=== PATIENT | male | born 1990 | race Caucasian/White ===

== ENCOUNTER 2017-02-20 19:32 | Emergency (ER) | payer OTHER ==
[~2017-02-20] VITALS: Ht 182.9 cm; Wt 84.1 kg
[2017-02-20 19:39] VITALS: BP 116/69
[2017-02-20] MEDS ORDERED: OXYC1TAB23 PO (19:46)
[2017-02-20] MEDS ORDERED: AMOXICILLIN 500 MG CAP PO ONE (22:30)
[2017-02-20] MEDS ORDERED: MAGIC MOUTHWASH SUSPENSION BTL SSP ONE ×2 (22:30→22:45)
[2017-02-20] MEDS ORDERED: KETOROLAC 60 MG/2 ML VIAL (J1885) IM ONE (22:30)
[2017-02-20] MEDS ORDERED: AMOX875T PO (22:33)
[2017-02-20] MEDS ORDERED: NAPR500T PO (22:33)
[2017-02-20] MEDS ORDERED: MAGICMW SSP (22:33)
== END 2017-02-20 23:04 | disposition home or self-care (01) ==
LOC: M ED 19:32
DX: K08.89 Other specified disorders of teeth and supporting structures (principal)
CPT/HCPCS: 96372; 99282; J1885

== ENCOUNTER 2017-08-04 15:27 | Inpatient (IN) | payer OTHER ==
[2017-08-04 16:13] LABS: HEMATOCRIT 44.1 % (42.0-52.0); HEMOGLOBIN 14.9 g/dl (14.0-18.0); MEAN CORPUSCULAR HEMOGLOBIN 32.3 pg (27.0-33.0); MEAN CORPUSCULAR HGB CONC 33.8 g/dl (32.0-36.5); MEAN CORPUSCULAR VOLUME 95.5 fl (80.0-96.0); PLATELET COUNT, AUTOMATED 317 10^3/uL (150-450); RED BLOOD COUNT 4.62 10^6/uL (4.30-6.10); RED CELL DISTRIBUTION WIDTH 12.2 % (11.5-14.5); WHITE BLOOD COUNT 8.6 10^3/uL (4.0-10.0)
[2017-08-04 16:30] LABS: AMPHETAMINES LEVEL URINE NEGATIVE (NEGATIVE); BARBITURATES URINE NEGATIVE (NEGATIVE); BENZODIAZEPINES URINE NEGATIVE (NEGATIVE); CANNABINOIDS URINE NEGATIVE (NEGATIVE); COCAINE METABOLITE URINE NEGATIVE (NEGATIVE); METHADONE URINE NEGATIVE (NEGATIVE); OPIATES URINE NEGATIVE (NEGATIVE); PHENCYCLIDINE URINE NEGATIVE (NEGATIVE)
[2017-08-04 16:48] LABS: ACETAMINOPHEN LEVEL < 2.0 UG/ML (10.0-30.0); ALBUMIN 4.4 GM/DL (3.2-5.2); ALBUMIN/GLOBULIN RATIO 1.29 (1.00-1.93); ALKALINE PHOSPHATASE 122 U/L (45-117); ALT/SGPT 22 U/L (12-78); ANION GAP 7 MEQ/L (8-16); AST/SGOT 12 U/L (7-37); BILIRUBIN,DIRECT < 0.1 MG/DL (0.0-0.2); BILIRUBIN,TOTAL 0.2 MG/DL (0.2-1.0); BLOOD UREA NITROGEN 16 MG/DL (7-18); CALCIUM LEVEL 9.1 MG/DL (8.5-10.1); CARBON DIOXIDE LEVEL 29 MEQ/L (21-32); CHLORIDE LEVEL 107 MEQ/L (98-107); CREATININE FOR GFR 0.99 MG/DL (0.70-1.30); ETHYL ALCOHOL (ETHANOL) 0.005 % (0.000-0.010); GLOMERULAR FILTRATION RATE > 60.0 (>60); GLUCOSE, FASTING 89 MG/DL (70-100); POTASSIUM SERUM 4.4 MEQ/L (3.5-5.1); SALICYLATE LEVEL < 1.7 MG/DL (5.0-30.0); SODIUM LEVEL 143 MEQ/L (136-145); THYROID STIMULATING HORMONE 0.538 uIU/ML (0.358-3.740); TOTAL PROTEIN 7.8 GM/DL (6.4-8.2)
[2017-08-04] MEDS ORDERED: MAALOX 30 ML SUSP *UDC PO (17:30)
[2017-08-04] MEDS ORDERED: MOM 30ML SUSPENSION UDC PO (17:30)
[2017-08-05] MEDS: busPIRone 10 MG TAB PO ×3 (11:31→22:42)
[2017-08-05] MEDS: ESCITALOPRAM OXALATE 5MG TABLET (LEXAPRO) PO (11:31)
[2017-08-05] MEDS: traZODone 50 MG TAB PO (22:42)
[2017-08-06] MEDS: busPIRone 10 MG TAB PO ×3 (09:30→21:00)
[2017-08-06] MEDS: ESCITALOPRAM OXALATE 5MG TABLET (LEXAPRO) PO (09:30)
[2017-08-07] MEDS: busPIRone 10 MG TAB PO ×3 (08:35→20:22)
[2017-08-07] MEDS: ESCITALOPRAM OXALATE 5MG TABLET (LEXAPRO) PO (08:35)
[2017-08-07] MEDS: traZODone 50 MG TAB PO (21:53)
[2017-08-08] MEDS: ESCITALOPRAM OXALATE 5MG TABLET (LEXAPRO) PO (09:11)
[2017-08-08] MEDS: busPIRone 10 MG TAB PO ×3 (09:11→21:21)
[2017-08-08] MEDS: ACETAMINOPHEN TAB 650MG DOSE (2X325MG) PO (10:25)
[2017-08-08] MEDS: traZODone 50 MG TAB PO (21:21)
[2017-08-09] MEDS: busPIRone 10 MG TAB PO (08:52)
[2017-08-09] MEDS: ESCITALOPRAM OXALATE 5MG TABLET (LEXAPRO) PO (08:52)
== END 2017-08-09 12:36 | disposition home or self-care (01) | DRG 885 ==
LOC: M ED 15:27 → M ED INP 17:25 → M PSY 21:10
DX: F39 Unspecified mood [affective] disorder (principal)